=== PATIENT | male | born 1980 | race Caucasian/White ===

== ENCOUNTER 2019-10-08 02:17 | Emergency (ER) | payer MEDICAID ==
[~2019-10-08] VITALS: Ht 180.3 cm; Wt 93.0 kg
[~2019-10-08 02:17] MED LIST: AZIT250T PO; IBUP-1986 PO
[2019-10-08 02:53] LABS: BASOPHILS % (AUTO) 0.3 % (0-1); EOSINOPHILS # (AUTO) 0.1 X10'3 (0-0.9); EOSINOPHILS % (AUTO) 1.3 % (0-6); HEMATOCRIT 44.4 % (42.0-52.0); HEMOGLOBIN 15.4 g/dl (14.0-17.9); LYMPHOCYTES # (AUTO) 1.8 X10'3 (1.1-4.8); LYMPHOCYTES % (AUTO) 22.1 % (21-51); MEAN CORPUSCULAR HEMOGLOBIN 29.3 PG (27.0-31.0); MEAN CORPUSCULAR HGB CONC 34.6 g/dL (33.0-36.5); MEAN CORPUSCULAR VOLUME 84.5 FL (78-98); MONOCYTES # (AUTO) 0.8 X10'3 (0-0.9); MONOCYTES % (AUTO) 9.6 % (2-12); NEUTROPHILS # (AUTO) 5.4 X10'3 (1.8-7.7); NEUTROPHILS % (AUTO) 66.7 % (42-75); PLATELET COUNT 195 X10'3 (140-440); RED BLOOD COUNT 5.26 X10'6 (4.70-6.10); RED CELL DISTRIBUTION WIDTH 13.6 % (11.5-14.5); WHITE BLOOD COUNT 8.1 X10'3 (4.5-11.0)
[2019-10-08 03:22] LABS: ALANINE AMINOTRANSFERASE 30 U/L (12-78); ALBUMIN 4.4 G/DL (3.4-5.0); ALBUMIN/GLOBULIN RATIO 1.4 (1.1-1.5); ALKALINE PHOSPHATASE 82 IU/L (46-116); ANION GAP 8 (8-16); ASPARTATE AMINO TRANSFERASE 23 U/L (10-37); BILIRUBIN,TOTAL 0.9 MG/DL (0.1-1.0); BLOOD UREA NITROGEN 12 MG/DL (7-18); BUN/CREATININE RATIO 9.8 (5.4-32.0); CALCIUM 8.8 MG/DL (8.5-10.1); CHLORIDE 106 MMOL/L (99-107); CREATININE 1.22 MG/DL (0.60-1.10); GLUCOSE 115 MG/DL (70-104); POTASSIUM 3.4 MMOL/L (3.5-5.1); SODIUM 142 MMOL/L (135-145); TOTAL CARBON DIOXIDE 28.4 MMOL/L (24-32); TOTAL PROTEIN 7.6 G/DL (6.4-8.2); eGFR 66 ML/MIN
[2019-10-08] MEDS ORDERED: ketorolac trometh. 30mg/ml inj. IV ONE (03:30)
[2019-10-08] MEDS ORDERED: potassium Cl 20 mEq SR tablet PO STA (03:32)
[2019-10-08 03:44] VITALS: BP 150/86
== END 2019-10-08 03:46 | disposition home or self-care (01) ==
LOC: ER 02:18
DX: R07.89 Other chest pain (principal); M79.10 Myalgia, unspecified site; R11.0 Nausea; F17.200 Nicotine dependence, unspecified, uncomplicated; F12.90 Cannabis use, unspecified, uncomplicated; Z79.2 Long term (current) use of antibiotics; Z79.899 Other long term (current) drug therapy
CPT/HCPCS: 36415; 71045; 80053; 83880; 85025; 93005; 96374; 99285; J1885; 84484

== ENCOUNTER 2019-10-10 01:18 | Emergency (ER) | payer MEDICAID ==
[~2019-10-10] VITALS: Ht 180.3 cm; Wt 96.8 kg
--- NOTE | 2019-10-10 01:45 | NUR ---
PT REPORTS TO ME THAT HE WAS NOT HOMEST AT TRIAGE . THAT HE UNGESTED A 1.5 GM OF METH PRIOR TO EMS ARRIVAL . WHEN I THIS RECORDER ASKED HOW MUCH METH HE HAS TAKEN REPORTS " 1.5 GRAMS AND THEN 1,5 GRAMS AND THEN 1.5 GRAMS "
--- NOTE | 2019-10-10 01:50 | NUR ---
REPORTED TO DR AYALA THAT PATIENT REPORTED THAT HE INJUSTED ADDITIONAL METH THAN WHAT HE MENTIONED AT TRIAGE.
[2019-10-10 02:00] LABS: ALANINE AMINOTRANSFERASE 26 U/L (12-78); ALBUMIN 4.4 G/DL (3.4-5.0); ALBUMIN/GLOBULIN RATIO 1.5 (1.1-1.5); ALKALINE PHOSPHATASE 84 IU/L (46-116); ANION GAP 8 (8-16); ASPARTATE AMINO TRANSFERASE 26 U/L (10-37); BLOOD UREA NITROGEN 17 MG/DL (7-18); BUN/CREATININE RATIO 13.4 (5.4-32.0); CALCIUM 8.9 MG/DL (8.5-10.1); CHLORIDE 104 MMOL/L (99-107); CREATININE 1.27 MG/DL (0.60-1.10); GLUCOSE 104 MG/DL (70-104); POTASSIUM 3.3 MMOL/L (3.5-5.1); SODIUM 140 MMOL/L (135-145); TOTAL CARBON DIOXIDE 27.6 MMOL/L (24-32); TOTAL PROTEIN 7.4 G/DL (6.4-8.2); eGFR 63 ML/MIN
[2019-10-10 02:11] LABS: BASOPHILS % (AUTO) 0.6 % (0-1); EOSINOPHILS # (AUTO) 0.1 X10'3 (0-0.9); EOSINOPHILS % (AUTO) 1.2 % (0-6); HEMATOCRIT 44.5 % (42.0-52.0); HEMOGLOBIN 15.6 g/dl (14.0-17.9); LYMPHOCYTES # (AUTO) 1.9 X10'3 (1.1-4.8); LYMPHOCYTES % (AUTO) 23.1 % (21-51); MEAN CORPUSCULAR HEMOGLOBIN 29.5 PG (27.0-31.0); MEAN CORPUSCULAR HGB CONC 34.9 g/dL (33.0-36.5); MEAN CORPUSCULAR VOLUME 84.4 FL (78-98); MONOCYTES # (AUTO) 0.7 X10'3 (0-0.9); NEUTROPHILS # (AUTO) 5.6 X10'3 (1.8-7.7); NEUTROPHILS % (AUTO) 67.1 % (42-75); RED BLOOD COUNT 5.28 X10'6 (4.70-6.10); RED CELL DISTRIBUTION WIDTH 13.2 % (11.5-14.5); WHITE BLOOD COUNT 8.3 X10'3 (4.5-11.0)
[2019-10-10 02:20] LABS: MEAN PLATELET VOLUME 9.2 FL (7.4-10.4); PLATELET COUNT 166 X10'3 (140-440)
--- NOTE | 2019-10-10 02:27 | NUR ---
PT WAS MONITORED FOR APPROX ONE HR HR IN NS AT 82 . WAS TOLD HE WAS GOING TO BE DISCHARGED PT ASKS " WHY " EXPLAIN TO PT HE HAS TAKEN DRUGS THIS IS WHAT DRUGS DO IT YOU , ENCOURAGD PT TO SEEK REHAB . REHAB EDUCATION GIVEN TO [facility] TO SEE THERAPY
[2019-10-10 02:30] VITALS: BP 170/80
[2019-10-10] MEDS ORDERED: NO HOME MEDS (04:27)
== END 2019-10-10 02:27 | disposition home or self-care (01) ==
LOC: ER 01:18
DX: R07.89 Other chest pain (principal); F15.10 Other stimulant abuse, uncomplicated; F17.200 Nicotine dependence, unspecified, uncomplicated; F12.90 Cannabis use, unspecified, uncomplicated; Z79.2 Long term (current) use of antibiotics; Z79.899 Other long term (current) drug therapy
CPT/HCPCS: 36415; 80053; 83880; 84484; 85025; 93005; 99284

== ENCOUNTER 2019-10-10 04:01 | Emergency (ER) | payer MEDICAID ==
[~2019-10-10] VITALS: Ht 180.3 cm; Wt 96.0 kg
[2019-10-10] MEDS ORDERED: LORazepam 1 MG tablet PO ONE (04:10)
[2019-10-10] MEDS ORDERED: haloperidol lactate 5mg/ml inj IM ONE (04:25)
[2019-10-10] MEDS ORDERED: LORazepam 2 mg/ml vial IM ONE (04:25)
[2019-10-10] MEDS ORDERED: diphenhydrAMINE 50 mg/ml inj IM ONE (04:25)
[2019-10-10] MEDS ORDERED: NO HOME MEDS (04:27)
--- NOTE | 2019-10-10 04:28 | NUR ---
SEE PREVIOUS VISIT FOR CBC, CHEM PANEL
--- NOTE | 2019-10-10 04:32 | NUR ---
MEDICATED WITH HALDOL / BENADRYL / ATIVAN IM . PT ANXIOUS , MOVING ALL AROUND THE ROOM WITH DEARSOF SOMEONE "GOING TO GET ME " PARANOID AND JERKY HAVING AUDITORY AND VISUAL HALLUSINATIONS. PT REPORTING THAT" THE WALL IS ABOUT TO OPEN AND I AM HEARING DRILLS OF PEOPLE USING TOOLS TO COME AND GET ME AND KILL ME "
--- NOTE | 2019-10-10 04:45 | NUR ---
PT CHANGED INTO GREEN SCRUBS . PAT BELONGING LIST COMPLETED
--- NOTE | 2019-10-10 05:09 | NUR ---
PT SITTING UPRIGHT IN BED IN THE DIRECT LINE OF SIGHT OF NURSING STAFF . PT ELBERT JERKY , NOW ROCKING BACK AND FORTH . WILL CONTINUE TO MONITOR AND REASSESS
--- NOTE | 2019-10-10 05:25 | NUR ---
PT LAYING DOWN IN BED, HUNCHED FORWARD ASLEEP ATTACHED O2 SAT MONIOTR 97 % RA , PT IN THE DIRECT LINE OF SIGHT OF NURSING STAFF .
--- NOTE | 2019-10-10 05:51 | NUR ---
PT LYING IN BED SUPINE IN THE DIREVT LINE OF SIGHT OF NURSING STAFF . O2 SATS AT 94 % RA
--- NOTE | 2019-10-10 08:18 | NUR ---
PT SLEEPING, IN NO APPARENT DISTRESS AT THIS TIME, EVEN RISE AND FALL OF CHEST, SKIN IS PINK WARM AND DRY. WILL CONTINUE TO MONITOR COSELY.
--- NOTE | 2019-10-10 08:35 | NUR ---
Received Pt from main ER on [facility]. Pt awake but lethargic. Pt transfered by himself and ate breakfast and fell asleep. Pt currently sleeping w/o distress.
[2019-10-10] MEDS ORDERED: LORazepam 1 MG tablet PO PRN (09:00)
--- NOTE | 2019-10-10 11:26 | NUR ---
Pt remains in bed sleeping w/o distress.
--- NOTE | 2019-10-10 12:16 | NUR ---
FAXED PACKET [facility]
[2019-10-10 13:51] LABS: URINE AMPHETAMINE SCREEN POSITIVE (Neg); URINE BARBITUATE SCREEN NEGATIVE (Neg); URINE BENZODIAZEPINES SCREEN NEGATIVE (Neg); URINE CANNABINOID SCREEN POSITIVE (Neg); URINE COCAINE SCREEN NEGATIVE (Neg); URINE METHADONE SCREEN NEGATIVE (Neg); URINE OPIATE SCREEN NEGATIVE (Neg); URINE PHENCYCLIDINE SCREEN NEGATIVE (Neg)
--- NOTE | 2019-10-10 15:03 | NUR ---
Pt woke to use bathroom and returned to bed. Pt currently sleeping w/o distress in bed.
--- NOTE | 2019-10-10 18:30 | NUR ---
HARDBOARD COATING MACHINE OPERATOR made aware that the patient has not had his labs drawn and orders received.
[2019-10-10 18:50] LABS: BASOPHILS % (AUTO) 0.5 % (0-1); EOSINOPHILS # (AUTO) 0.1 X10'3 (0-0.9); HEMATOCRIT 44.8 % (42.0-52.0); HEMOGLOBIN 15.4 g/dl (14.0-17.9); LYMPHOCYTES # (AUTO) 2.2 X10'3 (1.1-4.8); LYMPHOCYTES % (AUTO) 36.1 % (21-51); MEAN CORPUSCULAR HGB CONC 34.3 g/dL (33.0-36.5); MEAN CORPUSCULAR VOLUME 84.3 FL (78-98); MEAN PLATELET VOLUME 8.9 FL (7.4-10.4); MONOCYTES # (AUTO) 0.6 X10'3 (0-0.9); MONOCYTES % (AUTO) 9.3 % (2-12); NEUTROPHILS # (AUTO) 3.2 X10'3 (1.8-7.7); NEUTROPHILS % (AUTO) 52.1 % (42-75); PLATELET COUNT 155 X10'3 (140-440); RED BLOOD COUNT 5.31 X10'6 (4.70-6.10); RED CELL DISTRIBUTION WIDTH 13.5 % (11.5-14.5); WHITE BLOOD COUNT 6.1 X10'3 (4.5-11.0)
[2019-10-10 19:04] LABS: ALANINE AMINOTRANSFERASE 25 U/L (12-78); ALBUMIN 3.9 G/DL (3.4-5.0); ALBUMIN/GLOBULIN RATIO 1.4 (1.1-1.5); ALKALINE PHOSPHATASE 78 IU/L (46-116); ANION GAP 5 (8-16); ASPARTATE AMINO TRANSFERASE 26 U/L (10-37); BILIRUBIN,TOTAL 0.9 MG/DL (0.1-1.0); BLOOD UREA NITROGEN 15 MG/DL (7-18); BUN/CREATININE RATIO 14.7 (5.4-32.0); CALCIUM 8.6 MG/DL (8.5-10.1); CHLORIDE 108 MMOL/L (99-107); CREATININE 1.02 MG/DL (0.60-1.10); GLUCOSE 81 MG/DL (70-104); POTASSIUM 3.8 MMOL/L (3.5-5.1); SODIUM 142 MMOL/L (135-145); TOTAL CARBON DIOXIDE 29.1 MMOL/L (24-32); TOTAL PROTEIN 6.7 G/DL (6.4-8.2); eGFR 81 ML/MIN
--- NOTE | 2019-10-10 19:46 | NUR ---
The patient has been resting on his bed. He ate approximately 25% of his evening meal. Attempted one to one assessment but the patient was guarded and irritable and gave vague replies. When asked if he was suicidal he replied, "I'm a lot of things" When asked if was hearing voices he replied, "I'm a lot of things" He was made aware of the plan of care. He stated his anxiety was high and Ativan 1mg was given. His ankle monitor was alarming and he was given the funeral home location manager card for it. He was given the number to the parole office so he could call his fare enforcement officer to let them know he was here.
--- NOTE | 2019-10-10 20:50 | NUR ---
The patient is resting on his bed.
--- NOTE | 2019-10-10 21:06 | NUR ---
[facility] is interviewing the patient
--- NOTE | 2019-10-10 22:40 | NUR ---
The patient was placed on a 5150 hold for danger to self. He now appears to be sleeping.
--- NOTE | 2019-10-11 00:12 | NUR ---
The patient appears to be sleeping
--- NOTE | 2019-10-11 01:43 | NUR ---
The patient appears to be sleeping
--- NOTE | 2019-10-11 04:08 | NUR ---
The patient appears to be sleeping
--- NOTE | 2019-10-11 04:57 | NUR ---
The patient appears to be sleeping
[2019-10-11 05:57] VITALS: BP 139/81
--- NOTE | 2019-10-11 05:58 | NUR ---
[facility] is placing the patient and they requested a covid 19 test to be done. DOUGH RAISER swab collected and sent to the lab
--- NOTE | 2019-10-11 06:43 | NUR ---
Patient sleeping on right side with his head at the foot of the bed. Patient is charging his ankle monitor. No distress observed. Continue to monitor.
--- NOTE | 2019-10-11 07:30 | NUR ---
Patient is awake and alert, denies suicidal/homicidal ideation. Patient states he was high on drugs last night when they spoke to him. [facility] worker Hubert aware that he wants to be evaluated but many new patients are awaiting evaluation. Patient will have to wait to see if [facility] has time to seem him. Continue to monitor.
[2019-10-11] MEDS ORDERED: nicotine 21mg patch - 24 hr TD SCH (08:50)
--- NOTE | 2019-10-11 09:42 | NUR ---
breaking primary RN pt is wanting to know when he will be evaluated, req phone, given phone
--- NOTE | 2019-10-11 11:12 | NUR ---
Break relief for primary nurse. Pt ambulatory to the restroom with steady gait. Pt is quiet at this time.
--- NOTE | 2019-10-11 12:03 | NUR ---
Patient got angry and stated he wants to leave now. Patient stated agait if [facility] saw him when he was high, that doesn't count. Hubert from [facility] was in the area and stated he will request Vladislav to re-eval since he did the original evaluation. Vladislav just got here but there are still other patients to see first. Continue to monitor.
--- NOTE | 2019-10-11 13:22 | NUR ---
Patient started getting angry and yelling at staff that he wants his things so he can leave. RN explained that he has to wait to be evaluated. "You said that 4 hours ago." RN explained she cannot control when he gets seen [place]. Patient stated you better call somebody. RN called for Security to stand by. They stood by for about 15 minutes. [facility] the meantime[facility] and patient still agitated by not threatening. Continue to monitor,.
== END 2019-10-11 13:35 | disposition home or self-care (01) ==
LOC: ER 04:01
DX: R45.851 Suicidal ideations (principal); R07.89 Other chest pain; F32.9 Major depressive disorder, single episode, unspecified; F12.90 Cannabis use, unspecified, uncomplicated; F15.90 Other stimulant use, unspecified, uncomplicated; Z03.818 Encounter for observation for suspected exposure to other biological agents ruled out
CPT/HCPCS: 36415; 80053; 80305; 80320; 82140; 84443; 85025; 87635; 96372; 99285; C9803; J1200; J1630; J2060

== ENCOUNTER 2019-12-08 03:39 | Emergency (ER) | payer MEDICAID ==
[~2019-12-08] VITALS: Ht 180.3 cm; Wt 97.7 kg
[~2019-12-08 03:39] MED LIST changes: -AZIT250T PO; -IBUP-1986 PO; +NO HOME MEDS
[2019-12-08 03:48] VITALS: BP 167/101
[2019-12-08 04:20] LABS: BASOPHILS % (AUTO) 0.5 % (0-1); EOSINOPHILS # (AUTO) 0.1 X10'3 (0-0.9); HEMATOCRIT 44.9 % (42.0-52.0); HEMOGLOBIN 15.5 g/dl (14.0-17.9); LYMPHOCYTES # (AUTO) 1.5 X10'3 (1.1-4.8); LYMPHOCYTES % (AUTO) 20.8 % (21-51); MEAN CORPUSCULAR HEMOGLOBIN 29.3 PG (27.0-31.0); MEAN CORPUSCULAR HGB CONC 34.6 g/dL (33.0-36.5); MEAN CORPUSCULAR VOLUME 84.6 FL (78-98); MEAN PLATELET VOLUME 9.1 FL (7.4-10.4); MONOCYTES # (AUTO) 0.6 X10'3 (0-0.9); MONOCYTES % (AUTO) 7.5 % (2-12); NEUTROPHILS # (AUTO) 5.2 X10'3 (1.8-7.7); NEUTROPHILS % (AUTO) 70.2 % (42-75); PLATELET COUNT 215 X10'3 (140-440); RED BLOOD COUNT 5.31 X10'6 (4.70-6.10); RED CELL DISTRIBUTION WIDTH 13.5 % (11.5-14.5); WHITE BLOOD COUNT 7.5 X10'3 (4.5-11.0)
[2019-12-08 04:35] LABS: ALANINE AMINOTRANSFERASE 23 U/L (12-78); ALBUMIN 4.2 G/DL (3.4-5.0); ALBUMIN/GLOBULIN RATIO 1.2 (1.1-1.5); ALKALINE PHOSPHATASE 81 IU/L (46-116); ANION GAP 7 (8-16); ASPARTATE AMINO TRANSFERASE 16 U/L (10-37); BILIRUBIN,TOTAL 0.9 MG/DL (0.1-1.0); BLOOD UREA NITROGEN 13 MG/DL (7-18); BUN/CREATININE RATIO 13.1 (5.4-32.0); CALCIUM 8.6 MG/DL (8.5-10.1); CHLORIDE 103 MMOL/L (99-107); CREATININE 0.99 MG/DL (0.60-1.10); GLUCOSE 103 MG/DL (70-104); LIPASE 53 U/L (73-393); POTASSIUM 3.5 MMOL/L (3.5-5.1); SODIUM 139 MMOL/L (135-145); TOTAL CARBON DIOXIDE 28.8 MMOL/L (24-32); TOTAL PROTEIN 7.6 G/DL (6.4-8.2); eGFR 84 ML/MIN
[2019-12-08] MEDS ORDERED: ondansetron/PF 4mg/2ml inj IV ONE (05:30)
[2019-12-08] MEDS ORDERED: normal saline 1000ML IV soln IVB ONE (05:30)
[2019-12-08] MEDS ORDERED: ketorolac trometh. 30mg/ml inj. IV ONE (05:30)
== END 2019-12-08 06:16 | disposition home or self-care (01) ==
LOC: ER 03:40
DX: R10.31 Right lower quadrant pain (principal); F32.9 Major depressive disorder, single episode, unspecified; F17.200 Nicotine dependence, unspecified, uncomplicated; F12.90 Cannabis use, unspecified, uncomplicated; F15.90 Other stimulant use, unspecified, uncomplicated
CPT/HCPCS: 36415; 74176; 80053; 83690; 85025; 99284

== ENCOUNTER 2019-12-09 15:10 | Emergency (ER) | payer MEDICAID ==
[~2019-12-09] VITALS: Ht 180.3 cm; Wt 90.0 kg
--- NOTE | 2019-12-09 15:54 | NUR ---
As patient is waiting for a room, has been pacing and stating that he is having hallucinations and he wants to kill himself or someone else.
--- NOTE | 2019-12-09 16:19 | NUR ---
Seen by [facility], awaiting urine sample and blood draw for medical clearance. Bizarre behavior, appears very confused. States he is having auditory hallucinations saying that he hears a voice telling him his life is over. "May or may not have smoked something that wasnt pot". Very vague answers
[2019-12-09 16:49] LABS: BASOPHILS # (AUTO) 0.1 X10'3 (0-0.2); BASOPHILS % (AUTO) 0.9 % (0-1); EOSINOPHILS # (AUTO) 0.2 X10'3 (0-0.9); EOSINOPHILS % (AUTO) 2.2 % (0-6); HEMATOCRIT 46.9 % (42.0-52.0); HEMOGLOBIN 16.6 g/dl (14.0-17.9); LYMPHOCYTES # (AUTO) 1.6 X10'3 (1.1-4.8); LYMPHOCYTES % (AUTO) 19.4 % (21-51); MEAN CORPUSCULAR HGB CONC 35.3 g/dL (33.0-36.5); MEAN CORPUSCULAR VOLUME 85.1 FL (78-98); MEAN PLATELET VOLUME 8.9 FL (7.4-10.4); MONOCYTES # (AUTO) 0.7 X10'3 (0-0.9); NEUTROPHILS # (AUTO) 5.7 X10'3 (1.8-7.7); NEUTROPHILS % (AUTO) 68.5 % (42-75); PLATELET COUNT 220 X10'3 (140-440); RED BLOOD COUNT 5.52 X10'6 (4.70-6.10); RED CELL DISTRIBUTION WIDTH 13.3 % (11.5-14.5); WHITE BLOOD COUNT 8.3 X10'3 (4.5-11.0)
[2019-12-09 16:51] LABS: URINE AMPHETAMINE SCREEN POSITIVE (Neg); URINE BARBITUATE SCREEN NEGATIVE (Neg); URINE BENZODIAZEPINES SCREEN NEGATIVE (Neg); URINE CANNABINOID SCREEN POSITIVE (Neg); URINE COCAINE SCREEN NEGATIVE (Neg); URINE METHADONE SCREEN NEGATIVE (Neg); URINE OPIATE SCREEN NEGATIVE (Neg); URINE PHENCYCLIDINE SCREEN NEGATIVE (Neg)
[2019-12-09 16:55] LABS: ALANINE AMINOTRANSFERASE 22 U/L (12-78); ALBUMIN 4.4 G/DL (3.4-5.0); ALBUMIN/GLOBULIN RATIO 1.4 (1.1-1.5); ALKALINE PHOSPHATASE 86 IU/L (46-116); ANION GAP 5 (8-16); ASPARTATE AMINO TRANSFERASE 16 U/L (10-37); BILIRUBIN,TOTAL 0.7 MG/DL (0.1-1.0); BLOOD UREA NITROGEN 17 MG/DL (7-18); BUN/CREATININE RATIO 16.2 (5.4-32.0); CALCIUM 8.4 MG/DL (8.5-10.1); CHLORIDE 105 MMOL/L (99-107); CREATININE 1.05 MG/DL (0.60-1.10); ETHANOL < 0.010 GM/DL (0.0-0.010); GLUCOSE 93 MG/DL (70-104); POTASSIUM 3.7 MMOL/L (3.5-5.1); SODIUM 137 MMOL/L (135-145); TOTAL CARBON DIOXIDE 26.6 MMOL/L (24-32); TOTAL PROTEIN 7.5 G/DL (6.4-8.2); eGFR 79 ML/MIN
--- NOTE | 2019-12-09 17:16 | NUR ---
Patient changed into green scrubs. Sitting quietly at edge of bed, rocking back and forth. Labs reviewed.
--- NOTE | 2019-12-09 18:10 | NUR ---
Eating dinner at edge of bed
--- NOTE | 2019-12-09 18:26 | NUR ---
Patient sitting on the side of his bed. Patient asked if somebody could go to his car and get him his ankle monitor ware finisher. RN advised that we can't look through his car but RN would attempt to call his field artillery officer and advise him where he is and the situation.
--- NOTE | 2019-12-09 18:36 | NUR ---
RN called Can and got the number to the Probation/[place] office ([phone]). They do not take messages Patient's Cardiac Cath Technician is Anibal Potter. Patient wants him to know he is here and can't find his store merchandiser. RN gave patient the phone number.
--- NOTE | 2019-12-09 20:17 | NUR ---
Patient was sleeping and received a call from Yvrose. Patient took the call. No distress observed. Continue to monitor.
--- NOTE | 2019-12-09 20:30 | NUR ---
Patient walking up to nurses station. RN asked where the phone was and patient put his hand on the counter as if holding a phone and placed the "air" phone on the counter. Patient appeared confused. RN found the phone laying on patient's bed. Then RN spoke to patient about his car. Patient stood up and went back behind the nurses station. RN asked patient what he was doing. Patient stated he was going to move his car. Patient genuinely appeared confused. When RN spoke to patient earlier. Patient denied having any psych history. Continue to monitor.
--- NOTE | 2019-12-09 22:11 | NUR ---
faxed packet to [facility]
--- NOTE | 2019-12-09 22:20 | NUR ---
Yvrose, patient's girlfriend #[phone]
[2019-12-09 22:25] LABS: CLARITY,URINE CLEAR (Clear); COLOR,URINE YELLOW (Yellow); GLUCOSE, URINE NEGATIVE (Neg); KETONES,URINE 40 mg/dl (Neg); LEUKOCYTE ESTERASE ,URINE NEGATIVE (Neg); NITRITES, URINE NEGATIVE (Neg); OCCULT BLOOD,URINE NEGATIVE (Neg); PROTEIN,URINE NEGATIVE (Neg)
[2019-12-09 22:32] LABS: UA COLLECTION TYPE CLN CATCH MIDSTREAM
--- NOTE | 2019-12-09 22:55 | NUR ---
PATIENT'S PACKET WAS SENT TO [facility].
[2019-12-10 05:22] VITALS: BP 128/82
--- NOTE | 2019-12-10 12:22 | NUR ---
Patient being seen by [facility] Mahesh Ozuna at this time
== END 2019-12-10 13:39 | disposition home or self-care (01) ==
LOC: ER 15:11
DX: T50.901A Poisoning by unspecified drugs, medicaments and biological substances, accidental (unintentional), initial encounter (principal); F19.10 Other psychoactive substance abuse, uncomplicated; R44.3 Hallucinations, unspecified; F32.9 Major depressive disorder, single episode, unspecified; F12.90 Cannabis use, unspecified, uncomplicated; F15.90 Other stimulant use, unspecified, uncomplicated; Y92.89 Other specified places as the place of occurrence of the external cause
CPT/HCPCS: 36415; 80053; 80305; 80320; 81003; 85025; 93005; 99284; 99285

== ENCOUNTER 2019-12-11 13:05 | Emergency (ER) | payer MEDICAID ==
[~2019-12-11] VITALS: Ht 177.8 cm; Wt 80.0 kg
[2019-12-11 13:53] VITALS: BP 131/84
[2019-12-11 14:15] LABS: BASOPHILS % (AUTO) 0.4 % (0-1); EOSINOPHILS # (AUTO) 0.2 X10'3 (0-0.9); EOSINOPHILS % (AUTO) 2.1 % (0-6); HEMATOCRIT 45.5 % (42.0-52.0); HEMOGLOBIN 15.8 g/dl (14.0-17.9); LYMPHOCYTES # (AUTO) 1.9 X10'3 (1.1-4.8); LYMPHOCYTES % (AUTO) 22.1 % (21-51); MEAN CORPUSCULAR HEMOGLOBIN 29.3 PG (27.0-31.0); MEAN CORPUSCULAR HGB CONC 34.7 g/dL (33.0-36.5); MEAN CORPUSCULAR VOLUME 84.6 FL (78-98); MONOCYTES # (AUTO) 0.6 X10'3 (0-0.9); MONOCYTES % (AUTO) 7.3 % (2-12); NEUTROPHILS # (AUTO) 5.7 X10'3 (1.8-7.7); NEUTROPHILS % (AUTO) 68.1 % (42-75); PLATELET COUNT 205 X10'3 (140-440); RED BLOOD COUNT 5.38 X10'6 (4.70-6.10); RED CELL DISTRIBUTION WIDTH 13.4 % (11.5-14.5); WHITE BLOOD COUNT 8.4 X10'3 (4.5-11.0)
[2019-12-11 14:21] LABS: CLARITY,URINE CLEAR (Clear); COLOR,URINE YELLOW (Yellow); GLUCOSE, URINE NEGATIVE (Neg); KETONES,URINE 15 mg/dl (Neg); LEUKOCYTE ESTERASE ,URINE NEGATIVE (Neg); NITRITES, URINE NEGATIVE (Neg); OCCULT BLOOD,URINE NEGATIVE (Neg); PROTEIN,URINE NEGATIVE (Neg)
[2019-12-11 14:23] LABS: UA COLLECTION TYPE CLN CATCH MIDSTREAM
[2019-12-11 14:24] LABS: URINE AMPHETAMINE SCREEN POSITIVE (Neg); URINE BARBITUATE SCREEN NEGATIVE (Neg); URINE BENZODIAZEPINES SCREEN NEGATIVE (Neg); URINE CANNABINOID SCREEN POSITIVE (Neg); URINE COCAINE SCREEN NEGATIVE (Neg); URINE METHADONE SCREEN NEGATIVE (Neg); URINE OPIATE SCREEN NEGATIVE (Neg); URINE PHENCYCLIDINE SCREEN NEGATIVE (Neg)
[2019-12-11 14:31] LABS: ALANINE AMINOTRANSFERASE 22 U/L (12-78); ALBUMIN 4.1 G/DL (3.4-5.0); ALBUMIN/GLOBULIN RATIO 1.4 (1.1-1.5); ALKALINE PHOSPHATASE 79 IU/L (46-116); ANION GAP 7 (8-16); ASPARTATE AMINO TRANSFERASE 19 U/L (10-37); BILIRUBIN,TOTAL 0.8 MG/DL (0.1-1.0); BLOOD UREA NITROGEN 17 MG/DL (7-18); BUN/CREATININE RATIO 17.9 (5.4-32.0); CALCIUM 8.9 MG/DL (8.5-10.1); CHLORIDE 103 MMOL/L (99-107); CREATININE 0.95 MG/DL (0.60-1.10); GLUCOSE 115 MG/DL (70-104); POTASSIUM 3.5 MMOL/L (3.5-5.1); SODIUM 137 MMOL/L (135-145); TOTAL CARBON DIOXIDE 27.5 MMOL/L (24-32); TOTAL PROTEIN 7.1 G/DL (6.4-8.2); eGFR 88 ML/MIN
== END 2019-12-11 17:41 | disposition home or self-care (01) ==
LOC: ER 13:06
DX: R45.851 Suicidal ideations (principal); F32.9 Major depressive disorder, single episode, unspecified; F12.90 Cannabis use, unspecified, uncomplicated; F15.90 Other stimulant use, unspecified, uncomplicated
CPT/HCPCS: 36415; 80053; 80305; 81003; 85025; 99283